=== PATIENT | male | born 1940 | race Caucasian/White ===

== ENCOUNTER → 2019-06-04 | Outpatient (REF) | payer MEDICARE, OTHER | LOC: M LAB LCGH 09:27 | PROVIDERS: ATTEND Surgery | DX: R19.5 Other fecal abnormalities (principal); D12.4 Benign neoplasm of descending colon ==

== ENCOUNTER → 2024-03-26 | Outpatient (REF) | LOC: M PLAIMG 10:01 | PROVIDERS: ATTEND Internal Medicine | DX: R06.02 Shortness of breath (principal) ==